=== PATIENT | male | born 1950 | race African-American/Black ===

== ENCOUNTER 2023-03-01 17:59 | Emergency (ER) | payer MEDICARE ==
[~2023-03-01] VITALS: Ht 167.6 cm; Wt 54.0 kg
[2023-03-01 18:13] VITALS: O2SAT 99
[2023-03-01] MEDS ORDERED: HYDROCODONE/ACETAMINOPHEN 5/325MG TABLET PO ONE (19:15)
[2023-03-01 20:42] VITALS: BP 152/86
[2023-03-01] MEDS ORDERED: T3 PO (20:46)
[2023-03-01 21:02] VITALS: PULSE 75; RESP 20; TEMP 98.4
== END 2023-03-01 21:02 | disposition home or self-care (01) ==
LOC: ER 18:19
DX: M54.50 Low back pain, unspecified (principal); I10 Essential (primary) hypertension; R19.7 Diarrhea, unspecified
CPT/HCPCS: 72100; 99283